=== PATIENT | male | born 1985 | race Caucasian/White ===

== ENCOUNTER 2017-06-28 13:13 | Emergency (ER) | payer BC ==
[2017-06-28 13:28] VITALS: BP 169/111
--- NOTE | 2017-06-28 13:46 | ED Physician Documentation ---
Upper Respiratory Symptoms - HISTORIAN Historian: patient - HPI Stated Complaint: Chest congestion Chief Complaint: Cough/ Upper Respiratory Additional Information: onset yest cough congestion yellow sputum sinus congestion and forehead ext para nasal and temporal area-also sore throat fever ear congestion. b/k=ok Onset: days ago (1) Duration: constant, intermittent episodes Context: denies: recent foreign travel, insect bite(s) Severity: moderate Associated Symptoms: fever, chills, sweating, earache, runny nose, sinus pain, sinus drainage, sore throat, productive cough (yellow) Worsened by Deep Breath: No - ROS CONST/EYES: denies: weakness, eye redness, eye itching CVS/RESP: shortness of breath, palpitations LYMPH: denies: leg swelling, rash GI/: nausea. denies: abdominal pain, problems urinating, vomiting, diarrhea, black stools MS/SKIN: muscle aches. denies: rash - PAST HX Lung Disease: other (depression htn) PE Risk Factors: hypertension Surgeries/Procedures: none Allergies/Adverse Reactions: Allergies Allergy/AdvReac Type Severity Reaction Status Date / Time No Known Allergies Allergy Verified 06/28/17 13:25 Home Medications: Ambulatory Orders Medication Instructions Recorded Lisinopril [Prinivil] 20 mg PO DAILY 05/02/14 Sertraline HCl [Zoloft] 100 mg PO DAILY 05/02/14 - SOCIAL HX Smoking History: cigarettes Alcohol Use: none Drug Use: none - FAMILY HX Family History: no significant history - VITAL SIGNS Vital Signs: Vital Signs Temp Pulse Resp BP Pulse Ox 97.4 F L 99 H 17 169/111 96 06/28/17 13:23 06/28/17 13:23 06/28/17 13:23 06/28/17 13:23 06/28/17 13:23 - REVIEWED ASSESSMENTS Nursing Assessment Reviewed: Yes Vitals Reviewed: Yes Upper Respiratory Symptoms - EXAM General Appearance: mild distress, moderate distress EENT: eyes nml inspection, pain over sinuses, frontal, maxillary, TM obscured by cerumen, mucosal edema. No: nml ENT inspection, scleral icterus, pale conjunctivae, pharynx nml Neck: normal inspection, thyroid normal, supple. No: lymphadenopathy, stiff neck Respiratory: no resp. distress, breath sounds nml, speaks full sentences, prolonged expirations. No: respiratory distress, respiratory failure, decreased air movement, wheezes, rales, rhonchi, stridor Abdomen: non-tender CVS: reg rate & rhythm, heart sounds normal Skin: color nml, no rash, warm,dry. No: cyanosis, diaphoresis, pallor Extremities: non-tender, normal range of motion, no evidence of injury Neuro/Psych: oriented x3, mood/affect nml. No: disoriented, sensory loss Discharge Clincal Impression: rhinosinusitis Referrals: Primary Doctor,No [Primary Care Provider] - 2 Days Condition: Good Disposition: 01 HOME, SELF-CARE Decision to Admit: NO Decision Time: 13:51
== END 2017-06-28 13:47 | disposition home or self-care (01) ==
LOC: ED 13:13
DX: J01.80 Other acute sinusitis (principal)